=== PATIENT | female | born 1980 | race Caucasian/White ===

== ENCOUNTER 2017-12-11 20:35 | Emergency (ER) | payer BC ==
[2017-12-11 20:43] VITALS: BP 135/82; BMI 44.1
--- NOTE | 2017-12-11 21:00 | DR.GENAD ---
HPI - PCP Primary Care Physician: DESHAWN - HPI Comment HPI Comment: HISTORY BELOW. - Complaint/Symptoms Chief Complaint Doctors Comments: DIZZINESS, HEADACHE AND THROAT DISCOMFORT. SHE FELT THROAT WAS CLOSING. CURRENTLY THROAT IS FEELING NORMAL. STILL DIZZY WITH HEADACHE. NO FEVER. SOME CONGESTION PRESENT. Chief Complaint:: DIZZY, HEADACHE, THROAT CLOSING UP - Nurses notes reviewed Nurses Notes Review: Yes - Source History Provided: Patient - Mode of Arrival Mode of Arrival: Ambulatory - Timing Onset of Chief Complaint: 12/11/17 Came on: Suddenly - Duration Duration: Since Onset Duration: Hours - Severity Severity: Moderate PMH - PMH Past Medical History: No Past Surgical History: Yes Surgical History: Cholecystectomy, [employer] Surgery Past Surgical History Comment: TUBAL - Family History History of Family Medical Conditions: Yes Family Medical History: Diabetes Mellitus, [place], Coronary Artery Disease, Hypertension - Social History Does patient currently use any type of tobacco product: No Have you used tobacco products in the last 12 months: No Type of Tobacco Use: None Does any household member use tobacco: No Alcohol Use: None Do you use any recreational Drugs:: No Lives With: Family Lives Where: Home - infectious screening In the last 2 months have you had wt loss of >10#?: NO Have you had fever, night sweats or hemotysis?: No Have you traveled outside the country in the last 6 months?: No Isolation: Standard ROS - Review of Systems Constitutional: No Symptoms Reported. negative: Chills, Fever, Weakness, Fatigue Eyes: No Symptoms Reported ENTM: Nose Congestion, Throat Pain. negative: Ear Pain, Nose Discharge Respiratoy: Non-Productive Cough. negative: Short of Breath, Wheezing, Hemoptysis Cardiovascular: No Symptoms Reported Gastrointestinal/Abdominal: No Symptoms Reported Genitourinary: No Symptoms Reported Neurological: Headache, Dizziness Musculoskeletal: No Symptoms Reported Integumentary: No Symptoms Reported Hematologic/Lymphatic: No Symptoms Reported Endocrine: No Symptoms Reported All Other Systems: Reviewed and Negative PE - Vital Signs Vitals: Temperature 99.6 F Pulse Rate 90 Respiratory Rate 18 Blood Pressure 135/82 O2 Sat by Pulse Oximetry 98 - General Limitations: No Limitations General Appearance: Alert - Head Head Exam: Normal Inspection - Eyes Eye exam: Normal Appearance - ENT ENT Exam: Normal External Ear Exam External Ear Exam: Normal External Inspection TM/Canal Exam: Bilateral Bulging Nose Exam: Normal Nose Exam Mouth Exam: Normal Inspection Throat Exam: Tonsillar Erythema. negative: Tonsillar Exudate - Neck Neck Exam: Trachea Midline - Chest Chest Inspection: Symmetric Chest Wall Rise - Respiratory Respiratory Exam: Normal Lung Sounds Bilat Respiratory Exam: Bilateral Clear to Auscultation - Cardiovascular Cardiovascular Exam: Regular Rate, Normal Rhythm, Normal Heart Sounds - Abdominal Exam Abdominal Exam: Normal Inspection - Extremities Extremities Exam: Normal Inspection - Back Back Exam: Normal Inspection - Neurologic Neurological Exam: Alert, Oriented X3, CN II-XII Intact, Normal Gait, Reflexes Normal. negative: Motor Sensory Deficit - Psychiatric Psychiatric Exam: Normal Affect, Normal Mood - Skin Skin Exam: Normal Color MDM - Differential Diagnosis Differential Diagnosis: SINUSITIS, DIZZINESS, SINUS HEADACHE, PHARYGITIS, CVA Course - Treatment Treatment: SEE ORDERS. - Education/Counseling Education/Counseling: Patient, Education Educated On: Treatment, Diagnosis, Needs for Follow Up ROR - Labs Reviewed Laboratory Results Reviewed?: Yes Laboratory: S. pyogenes (TEM-PCR) Not detected (NOT DETECT) 12/11/17 21:22 - XRAY XRAY Interpreted by: Radiologist XRAY Findings: REPORT DISCUSS WITH PATIENT. - Diagnosis Discharge Problem: Sinusitis, Sinus headache, Dizziness - Discharge Plan Condition: Stable Prescriptions: Amoxicillin & Pot Clavulanate [AUGMENTIN TAB 875 mg/125 mg *] 1 tab PO BID #20 tab Cetirizine HCl [Zyrtec Tab 10 mg] 10 mg PO DAILY #30 tab Ibuprofen [MOTRIN TAB 800 MG *] 800 mg PO Q8H PRN #20 tab PRN Reason: Pain/Inflammation - Follow ups/Referrals Follow ups/Referrals: NFD,None [Primary Care Provider] - 3 days - Instructions Instructions: Sinusitis, Adult, [id number], Sinus Headache, [id number], Dizziness, [id number] Additional Instructions: RETURN TO ED IF WORSE.
--- NOTE | 2017-12-11 21:32 | CT ---
CT brain without contrast Indication: Headache Comparison: None available Technique: Multiple axial images of the brain were obtained from the skull base to the vertex without administra tion of IV contrast. Findings: Mild mucosal thickening of the right maxillary sinus. No acute intraparenchymal hemorrhage or mass can be identified. No extra-axial fluid collections are seen. No alteration in the attenuation of the brain parenchyma can be identified to suggest acute o r subacute ischemic change. The ventricular system is symmetric and nondilated. The extracranial st ructures are grossly unremarkable. IMPRESSION: 1. No acute intracranial process is identified. 2.Mild right maxillary sinus mucosal disease. Reported By:
[2017-12-11] MEDS ORDERED: AMOXIL CAP 500 MG PO ONE ×4 (22:19→22:33)
[2017-12-11] MEDS ORDERED: PREDNISONE TAB 20 MG PO ONE ×3 (22:19→22:30)
[2017-12-11] MEDS ORDERED: TORADOL TAB PO ONE ×2 (22:19→22:29)
== END 2017-12-11 22:40 | disposition home or self-care (01) ==
LOC: ER 20:48
DX: J32.9 Chronic sinusitis, unspecified (principal); R51 Headache; R42 Dizziness and giddiness
CPT/HCPCS: 70450; 87651; 99282; J7506